=== PATIENT | female | born 1975 | race Caucasian/White ===

== ENCOUNTER 2017-12-21 10:36 | Inpatient (IN) ==
--- NOTE | 2017-12-21 10:18 | Anesthesia Evaluation PreOp ---
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: Denies Any Significant HX Other Medical History: GERD Anesthesia History: No Prior Anesthetic Complications, Past Anesthesia Test: Negative (12/21/2017) Alcohol Use: rarely Drug use: none Medications and Allergies No Known Home Drugs 07/19/17 [History] 3 Allergy/AdvReac Type Severity Reaction Status Date / Time Amoxicillin [From Augmentin] AdvReac Hallucinati Verified 12/12/17 09:26 ng camphor [From Flexall Plus] AdvReac Nausea Verified 12/12/17 09:26 clavulanic acid AdvReac Hallucinati Verified 12/12/17 09:26 [From Augmentin] ng levofloxacin [From Levaquin] AdvReac Nausea Verified 12/12/17 09:26 lidocaine AdvReac Palpitation Verified 12/12/17 09:26 s menthol [From Flexall Plus] AdvReac Nausea Verified 12/12/17 09:26 methyl salicylate AdvReac Nausea Verified 12/12/17 09:26 [From Flexall Plus] mirabegron [From Myrbetriq] AdvReac Nausea Verified 12/12/17 09:26 nitrofurantoin AdvReac Vomiting Verified 12/12/17 09:26 [From Macrobid] oxybutynin AdvReac Nausea Verified 12/12/17 09:26 sulfamethoxazole AdvReac See Verified 12/12/17 09:26 [From Bactrim] Comments trimethoprim [From Bactrim] AdvReac See Verified 12/12/17 09:26 Comments - Meds/Allergy Pre-op Review Medications Reviewed: Yes Allergies Reviewed: Yes Beta Blockers on Current Med List: No Anesthesia Results - Labs Laboratory Tests 04/11/17 12/12/17 12/12/17 15:23 09:34 09:34 WBC 8.7 Hgb 14.9 Hct 46.0 H Plt Count 261 Sodium 141 Potassium 3.7 BUN 19 Creatinine 0.95 - Imaging EKG: report reviewed (04/11/2017) Anesthesia Exam O2 Sat Height 1.55 m Height 1.55 m Weight 85.275 kg Weight 85.275 kg O2 Sat by Pulse Oximetry 98 Vital Signs Temp Pulse Resp BP Pulse Ox 98.5 F 92 18 142/91 98 12/21/17 10:58 12/21/17 10:58 12/21/17 10:58 12/21/17 10:58 12/21/17 10:58 Height: 5'1'' Weight: 188 lbs NPO (# of Hours): 8 Pain Scale: 0 Pain Scale Used: Numeric (1 - 10) - HEENT Pupil (Motor): EOMI Mallampati: II Teeth: Normal (broken cap left lower molar) Oral Opening: Greater than 3 - 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
[2017-12-21] MEDS ORDERED: *HR* Propofol 200 MG/20 ML VIAL IVP ONE (10:52)
[2017-12-21] MEDS ORDERED: *HR* FentaNYL (PF) 100 MCG/2 ML VIAL ONE ×2 (10:52→12:10)
[2017-12-21] MEDS ORDERED: *HR* Rocuronium Bromide 50 MG/5 ML VIAL ONE (10:52)
[2017-12-21] MEDS ORDERED: Dexamethasone 4 MG/ML VIAL ONE (10:52)
[2017-12-21] MEDS ORDERED: *HR* Midazolam HCl 2 MG/2 ML VIAL ONE (10:52)
[2017-12-21] MEDS ORDERED: *HR* Succinylcholine 200 MG/10 ML VIAL IVP ONE (10:52)
[2017-12-21] MEDS ORDERED: Lidocaine -MPF 2% 2 ML VIAL ONE (10:52)
[2017-12-21] MEDS ORDERED: Ondansetron 4 MG/2 ML VIAL ONE (10:52)
[2017-12-21] MEDS ORDERED: cefOXitin 2,000 MG in Water for inj. (sterile) 20 ML 10 ML IVP ONE (10:58)
[2017-12-21] MEDS ORDERED: Ringers Solution, Lactated 1,000 ML IVC SCH (11:00)
[2017-12-21] MEDS ORDERED: *HR* OxyCODONE Immed Rel 5 MG TABLET PO PRN (11:01)
--- NOTE | 2017-12-21 11:21 | History & Physical Report ---
Date of Encounter: 12/21/17 Time of Encounter: 11:20 24 Hour HP Update - Instructions Instructions: If the History and Physical is less than 30 days old and was completed prior to A.M. admission and or procedure and has NOT been updated on calendar day of procedure please complete this update prior to performing procedure. - Update Patient reports changes in Medical Condition: No Changes in examination, assessment, or condition: No Changes in Medication: No Preop tests/diagnostics Reviewed: Yes Surgery Remains Indicated: Yes Consent for Planned Operative Procedure(s) Verified: Yes - Pre-Operative Checklist Preoperative Checklist Indicated: Yes Prophylactic Antibiotic Ordered: Yes Home Medications Include Beta Brandt: No Is VTE Prophylaxis Indicated?: Yes
[2017-12-21] MEDS ORDERED: cefOXitin 1,000 MG, 0.9 % Sodium Chloride 1,000 ML IR ONE (11:45)
[2017-12-21] MEDS ORDERED: Neostigmine Methylsulfate 3 MG/3 ML SYRINGE ONE (12:05)
[2017-12-21] MEDS ORDERED: Isovue-300 50 ML VIAL IVP ONE (12:29)
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
[2017-12-21] MEDS: *HR* FentaNYL (PF) 100 MCG/2 ML VIAL IVP PRN ×2 (13:33→13:38)
[2017-12-21] MEDS ORDERED: *HR* HYDROmorphone (PF) 1 MG/ML SYRINGE IVP ONE (14:02)
--- NOTE | 2017-12-21 14:39 | Anesthesia Evaluation Post Op ---
Date of Encounter: 12/21/17 Time of Encounter: 14:39 Notes: Patient's vital signs have been reviewed. Patient is stable postoperatively and has adequately recovered from anesthesia. Patient is determined to have stable airway patency and respiratory function including respiratory rate and oxygen saturation. Patient has a stable heart rate, blood pressure and adequate hydration. Patients mental status is acceptable. Patients temperature is appropriate. Pain and nausea are adequately controlled. - Discharge PostOp Status: Transfer Patient to floor
[2017-12-21] MEDS ORDERED: *HR* OxyCODONE/APAP 5/325 TABLET PO PRN (15:05)
[2017-12-21] MEDS ORDERED: Ondansetron 4 MG/2 ML VIAL IVP PRN (15:05)
[2017-12-21] MEDS: 0.9 % Sodium Chloride 1,000 ML IVC SCH (15:52)
[2017-12-21] MEDS: OXYCODONE Oral CONC 10 MG/0.5 ML ORAL.SYG SL PRN ×2 (15:52→21:19)
[2017-12-21] MEDS: *HR* Heparin 5,000 UNIT/ML VIAL SQ SCH (18:11)
[2017-12-21] MEDS: cefOXitin 2,000 MG in Water for inj. (sterile) 20 ML 10 ML IVP SCH (19:51)
[2017-12-22] MEDS: OXYCODONE Oral CONC 10 MG/0.5 ML ORAL.SYG SL PRN ×5 (01:54→20:22)
[2017-12-22] MEDS: *HR* Heparin 5,000 UNIT/ML VIAL SQ SCH ×2 (05:15→17:46)
[2017-12-22] MEDS: cefOXitin 2,000 MG in Water for inj. (sterile) 20 ML 10 ML IVP SCH (05:15)
[2017-12-22] MEDS: 0.9 % Sodium Chloride 1,000 ML IVC SCH ×2 (05:19→15:57)
[2017-12-22] MEDS: Pantoprazole 40 MG VIAL IVP SCH (07:40)
[2017-12-22 08:18] LABS: Basophils % 0.1 %; Hematocrit 40.5 % (35.3-44.9); Hemoglobin 13.1 g/dL (11.5-15.4); Immature Granulocytes % 0.3 % (0-4); Lymphocytes # 1.1 K/mcL (0.6-4.6); Lymphocytes % 9.8 %; Mean Corpuscular HGB Conc 32.3 g/dL (31.6-35.5); Mean Corpuscular Hemoglobin 28.5 pg (28.0-33.3); Mean Corpuscular Volume 88.2 fL (83.0-100.0); Mean Platelet Volume 10.4 fL (9.4-12.4); Monocytes # 1.1 K/mcL (0.0-1.3); Monocytes % 9.3 %; Platelet Count 161 K/mcL (140-400); Red Blood Count 4.59 M/mcL (3.82-4.97); Red Cell Distribution Width 13.3 % (11.5-14.5); Segmented Neutrophils % 80.5 %
[2017-12-22 08:19] LABS: Neutrophils # 9.3 K/mcL (1.6-8.9)
[2017-12-22 08:40] LABS: Alanine Aminotransferase 28 Units/L (7-52); Albumin 3.3 g/dL (3.5-5.7); Albumin/Globulin Ratio 1.4 (1.1-2.2); Alkaline Phosphatase 51 Units/L (34-104); Aspartate Amino Transferase 33 Units/L (13-39); BUN/Creatinine Ratio 15 (6-26); Bilirubin,Total 0.6 mg/dL (0.3-1.0); Blood Urea Nitrogen 14 mg/dL (6-20); Calcium 8.3 mg/dL (8.6-10.3); Carbon Dioxide 22 mEq/L (23-29); Chloride 109 mEq/L (98-107); Globulin 2.4 g/dL (2.4-3.5); Glucose 94 mg/dL (70-105); Osmolality,Calculated 282 (280-300); Potassium 4.4 mEq/L (3.5-5.1); Sodium 136 mEq/L (136-145); Total Protein 5.7 g/dL (6.4-8.9); eGFR For African Americans > 60 (> 60); eGFR For Non-African Americans > 60 (> 60)
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
[2017-12-23] MEDS: 0.9 % Sodium Chloride 1,000 ML IVC SCH ×2 (04:26→14:18)
[2017-12-23] MEDS: OXYCODONE Oral CONC 10 MG/0.5 ML ORAL.SYG SL PRN ×4 (04:26→20:23)
[2017-12-23] MEDS: *HR* Heparin 5,000 UNIT/ML VIAL SQ SCH ×2 (05:20→18:01)
[2017-12-23] MEDS: Pantoprazole 40 MG VIAL IVP SCH (08:22)
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
[2017-12-24] MEDS: 0.9 % Sodium Chloride 1,000 ML IVC SCH ×2 (02:23→12:42)
[2017-12-24] MEDS: OXYCODONE Oral CONC 10 MG/0.5 ML ORAL.SYG SL PRN ×4 (03:32→21:54)
[2017-12-24] MEDS: *HR* Heparin 5,000 UNIT/ML VIAL SQ SCH ×2 (05:28→16:57)
[2017-12-24] MEDS: Pantoprazole 40 MG VIAL IVP SCH (09:00)
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
[2017-12-25] MEDS: *HR* Heparin 5,000 UNIT/ML VIAL SQ SCH (05:05)
[2017-12-25 07:14] VITALS: BP 129/83
[2017-12-25] MEDS: OXYCODONE Oral CONC 10 MG/0.5 ML ORAL.SYG SL PRN (07:18)
[2017-12-25] MEDS: Pantoprazole 40 MG VIAL IVP SCH (07:19)
== END 2017-12-25 09:44 | disposition home or self-care (01) | DRG 416 ==
LOC: SAMDAY 10:36 → 3ANU 14:58
PROVIDERS: ADMIT Surgery; ATTEND Surgery